=== PATIENT | female | born 1995 | race Caucasian/White ===

== ENCOUNTER → 2024-05-15 06:58 | Outpatient (REF) | payer OTHER, SELFPAY | LOC: PNTC 06:58 | PROVIDERS: ATTENDING PHYSICIAN Obstetrics & Gynecology | DX: Z36.0 Encounter for antenatal screening for chromosomal anomalies (principal); O99.210 Obesity complicating pregnancy, unspecified trimester | CPT/HCPCS: 76816 ==

== ENCOUNTER → 2024-06-12 14:40 | Outpatient (REF) | payer OTHER, SELFPAY | LOC: PNTC 14:40 | PROVIDERS: ATTENDING PHYSICIAN Obstetrics & Gynecology | DX: O99.210 Obesity complicating pregnancy, unspecified trimester (principal) | CPT/HCPCS: 76816 ==

== ENCOUNTER → 2024-06-26 14:44 | Outpatient (REF) | payer OTHER, SELFPAY | LOC: PNTC 14:44 | PROVIDERS: ATTENDING PHYSICIAN Obstetrics & Gynecology | DX: Z36.0 Encounter for antenatal screening for chromosomal anomalies (principal); O99.210 Obesity complicating pregnancy, unspecified trimester | CPT/HCPCS: 59025; 76815 ==

== ENCOUNTER → 2024-07-03 16:28 | Outpatient (REF) | payer OTHER, SELFPAY | LOC: PNTC 16:28 | PROVIDERS: ATTENDING PHYSICIAN Obstetrics & Gynecology | DX: O35.5XX0 Maternal care for (suspected) damage to fetus by drugs, not applicable or unspecified (principal) | CPT/HCPCS: 59025; 76815 ==

== ENCOUNTER → 2024-07-11 13:53 | Outpatient (REF) | payer OTHER, SELFPAY | LOC: PNTC 13:53 | PROVIDERS: ATTENDING PHYSICIAN Obstetrics & Gynecology | DX: O99.210 Obesity complicating pregnancy, unspecified trimester (principal); O99.320 Drug use complicating pregnancy, unspecified trimester | CPT/HCPCS: 59025; 76816 ==

== ENCOUNTER → 2024-07-18 14:19 | Outpatient (REF) | payer OTHER, SELFPAY | LOC: PNTC 14:19 | PROVIDERS: ATTENDING PHYSICIAN Obstetrics & Gynecology | DX: Z36.0 Encounter for antenatal screening for chromosomal anomalies (principal); O99.210 Obesity complicating pregnancy, unspecified trimester | CPT/HCPCS: 59025; 76818 ==

== ENCOUNTER → 2024-07-25 14:23 | Outpatient (REF) | payer OTHER, SELFPAY | LOC: PNTC 14:23 | PROVIDERS: ATTENDING PHYSICIAN Obstetrics & Gynecology | DX: O99.210 Obesity complicating pregnancy, unspecified trimester (principal) | CPT/HCPCS: 59025; 76815 ==

== ENCOUNTER → 2024-08-01 15:20 | Outpatient (REF) | payer OTHER, SELFPAY | LOC: PNTC 15:20 | PROVIDERS: ATTENDING PHYSICIAN Obstetrics & Gynecology | DX: Z36.0 Encounter for antenatal screening for chromosomal anomalies (principal); O99.210 Obesity complicating pregnancy, unspecified trimester | CPT/HCPCS: 59025; 76805; 76818 ==

== ENCOUNTER 2024-08-01 17:00 | Observation (INO) | payer OTHER, SELFPAY ==
[2024-08-01 17:12] VITALS: BP 111/62; BMI 51.3
== END 2024-08-01 18:08 | disposition home or self-care (01) ==
LOC: LDRP 17:00
PROVIDERS: ADMITTING PHYSICIAN Obstetrics & Gynecology
DX: O99.213 Obesity complicating pregnancy, third trimester (principal); Z3A.39 39 weeks gestation of pregnancy; O99.283 Endocrine, nutritional and metabolic diseases complicating pregnancy, third trimester; E28.2 Polycystic ovarian syndrome
CPT/HCPCS: 59025; 36415; 86850; 86900; 86901; G0378

== ENCOUNTER 2024-08-02 00:33 | Inpatient (IN) | payer OTHER, SELFPAY ==
[2024-08-02 00:48] VITALS: BMI 51.3
[2024-08-02 01:38] VITALS: BP 123/69
[2024-08-02] MEDS: LR 1000 IV ×3 (01:40→19:43)
[2024-08-02 01:53] LABS: Hematocrit 32.7 % (37.0-47.0); Hemoglobin 11.5 g/dL (12.0-16.0); Mean Corp Hgb Conc. 35.2 g/dL (33.0-37.0); Mean Corpuscular Hgb 28.1 pg (27.0-31.0); Mean Platelet Volume 10.5 fL (7.4-10.4); Platelet Count 300 10^3/uL (130-400); Red Blood Cell Count 4.09 10^6/uL (4.20-5.40); Red Cell Dist. Width 13.7 % (11.5-14.5)
[2024-08-02] MEDS: ZOFRAN 4 MG IV ×2 (04:22→22:13)
[2024-08-02] MEDS: PITOCIN 30 UNITS/NSS 500 ML IV (13:35)
[2024-08-02] MEDS: FENTANYL/BUPIVACAINE 100 EPIDURAL (16:34)
[2024-08-02] MEDS: SUBLIMAZE 100 MCG EPIDURAL (16:34)
[2024-08-03] MEDS: FENTANYL/BUPIVACAINE 100 EPIDURAL (00:23)
[2024-08-03] MEDS: LR 1000 IV (03:36)
[2024-08-03] MEDS: PITOCIN 30 UNITS/NSS 500 ML IV (05:56)
[2024-08-03] MEDS: PRENATAL PLUS 1 TABLET PO (08:57)
[2024-08-03] MEDS: SENOKOT-S 1 TABLET PO (08:57)
[2024-08-03] MEDS: TYLENOL 650 MG PO ×3 (08:57→22:09)
[2024-08-03] MEDS: MOTRIN 600 MG PO ×3 (08:58→22:09)
[2024-08-04] MEDS: MOTRIN 600 MG PO ×3 (04:27→23:37)
[2024-08-04] MEDS: TYLENOL 650 MG PO ×2 (04:27→23:37)
[2024-08-04 05:00] LABS: Hematocrit 27.1 % (37.0-47.0); Hemoglobin 9.1 g/dL (12.0-16.0)
[2024-08-04] MEDS: SENOKOT-S 1 TABLET PO (12:30)
[2024-08-04] MEDS: PRENATAL PLUS 1 TABLET PO (12:31)
[2024-08-07 11:25] LABS: Syphilis/T. pallidum Ab Reflex Negative (Negative)
== END 2024-08-05 12:06 | disposition home or self-care (01) | DRG 807 ==
LOC: LDRP 00:33
PROVIDERS: Obstetrics & Gynecology; ADMITTING PHYSICIAN Obstetrics & Gynecology
PROC: 10907ZC Drainage of Amniotic Fluid, Therapeutic from Products of Conception, Via Natural or Artificial Opening (ICD-10-PCS; 2024-08-02)
PROC: 10D07Z6 Extraction of Products of Conception, Vacuum, Via Natural or Artificial Opening (ICD-10-PCS; 2024-08-03)
PROC: 0HQ9XZZ Repair Perineum Skin, External Approach (ICD-10-PCS; 2024-08-03)
DX: O34.219 Maternal care for unspecified type scar from previous cesarean delivery (principal); Z37.0 Single live birth; Z3A.39 39 weeks gestation of pregnancy; O70.0 First degree perineal laceration during delivery; O99.284 Endocrine, nutritional and metabolic diseases complicating childbirth; E28.2 Polycystic ovarian syndrome; O99.214 Obesity complicating childbirth; Z28.310 Unvaccinated for COVID-19; Z82.0 Family history of epilepsy and other diseases of the nervous system; Z80.3 Family history of malignant neoplasm of breast; Z82.49 Family history of ischemic heart disease and other diseases of the circulatory system
CPT/HCPCS: 88307; 54150; 85014; 85018; 85027; 86780; 86850; 86900; 86901; 87491; 87591

== ENCOUNTER → 2025-05-28 14:20 | Outpatient (REF) | payer OTHER, SELFPAY | LOC: PNTC 14:20 | PROVIDERS: ATTENDING PHYSICIAN Obstetrics & Gynecology | DX: O99.210 Obesity complicating pregnancy, unspecified trimester (principal); O34.219 Maternal care for unspecified type scar from previous cesarean delivery | CPT/HCPCS: 36415; 76805 ==

== ENCOUNTER → 2025-06-24 15:54 | Outpatient (REF) | payer OTHER, SELFPAY | LOC: PNTC 15:54 | PROVIDERS: ATTENDING PHYSICIAN Obstetrics & Gynecology | DX: O34.219 Maternal care for unspecified type scar from previous cesarean delivery (principal); O99.212 Obesity complicating pregnancy, second trimester; Z36.86 Encounter for antenatal screening for cervical length; E66.01 Morbid (severe) obesity due to excess calories | CPT/HCPCS: 76811 ==

== ENCOUNTER → 2025-07-29 09:26 | Outpatient (REF) | payer OTHER, SELFPAY | LOC: PNTC 09:26 | PROVIDERS: ATTENDING PHYSICIAN Student in an Organized Health Care Education/Training Program | DX: O99.210 Obesity complicating pregnancy, unspecified trimester (principal) | CPT/HCPCS: 76816 ==

== ENCOUNTER → 2025-08-27 07:33 | Outpatient (REF) | payer OTHER, SELFPAY | LOC: PNTC 07:33 | PROVIDERS: ATTENDING PHYSICIAN Obstetrics & Gynecology | DX: O99.210 Obesity complicating pregnancy, unspecified trimester (principal) | CPT/HCPCS: 76816 ==

== ENCOUNTER → 2025-09-24 07:33 | Outpatient (REF) | payer OTHER, SELFPAY | LOC: PNTC 07:33 | PROVIDERS: ATTENDING PHYSICIAN Obstetrics & Gynecology | DX: O09.523 Supervision of elderly multigravida, third trimester (principal) | CPT/HCPCS: 59025; 76816 ==

== ENCOUNTER → 2025-10-01 07:40 | Outpatient (REF) | payer OTHER, SELFPAY | LOC: PNTC 07:40 | PROVIDERS: ATTENDING PHYSICIAN Obstetrics & Gynecology | DX: O99.213 Obesity complicating pregnancy, third trimester (principal) | CPT/HCPCS: 59025; 76815 ==

== ENCOUNTER → 2025-10-08 07:31 | Outpatient (REF) | payer OTHER, SELFPAY | LOC: PNTC 07:31 | PROVIDERS: ATTENDING PHYSICIAN Obstetrics & Gynecology | DX: O99.213 Obesity complicating pregnancy, third trimester (principal); E66.01 Morbid (severe) obesity due to excess calories | CPT/HCPCS: 59025; 76815 ==

== ENCOUNTER → 2025-10-15 07:38 | Outpatient (REF) | payer OTHER, SELFPAY | LOC: PNTC 07:38 | PROVIDERS: ATTENDING PHYSICIAN Obstetrics & Gynecology | DX: O99.213 Obesity complicating pregnancy, third trimester (principal); E66.01 Morbid (severe) obesity due to excess calories | CPT/HCPCS: 59025; 76815 ==

== ENCOUNTER → 2025-10-22 07:23 | Outpatient (REF) | payer OTHER, SELFPAY | LOC: PNTC 07:23 | PROVIDERS: ATTENDING PHYSICIAN Student in an Organized Health Care Education/Training Program | DX: O99.213 Obesity complicating pregnancy, third trimester (principal); E66.01 Morbid (severe) obesity due to excess calories; O36.63X0 Maternal care for excessive fetal growth, third trimester, not applicable or unspecified | CPT/HCPCS: 59025; 76816 ==

== ENCOUNTER → 2025-10-29 07:37 | Outpatient (REF) | payer OTHER, SELFPAY | LOC: PNTC 07:37 | PROVIDERS: ATTENDING PHYSICIAN Obstetrics & Gynecology | DX: O99.213 Obesity complicating pregnancy, third trimester (principal); E66.01 Morbid (severe) obesity due to excess calories; O36.63X0 Maternal care for excessive fetal growth, third trimester, not applicable or unspecified | CPT/HCPCS: 59025; 76815 ==

== ENCOUNTER 2025-11-01 05:50 | Inpatient (IN) | payer OTHER, SELFPAY ==
[2025-11-01 06:16] VITALS: BP 134/87; BMI 52.2
[2025-11-01] MEDS: LR 1000 IV ×2 (06:32→07:19)
[2025-11-01] MEDS: BICITRA 30 ML PO (07:13)
[2025-11-01] MEDS: ANCEF 15 MG IV (07:14)
[2025-11-01] MEDS: TYLENOL 975 MG PO (07:14)
[2025-11-01 07:23] LABS: Hematocrit 33.3 % (37.0-47.0); Hemoglobin 11.2 g/dL (12.0-16.0); Mean Corp Hgb Conc. 33.6 g/dL (33.0-37.0); Mean Corpuscular Volume 79.9 fL (81.0-99.0); Platelet Count 286 10^3/uL (130-400); Red Cell Dist. Width 13.7 % (11.5-14.5)
[2025-11-01] MEDS: REGLAN 10 MG IV (10:25)
[2025-11-01] MEDS: TORADOL 15 MG IV ×2 (15:13→21:07)
[2025-11-01] MEDS: FLUSH (NSS) 1 FLUSH IV (15:14)
[2025-11-01] MEDS: PITOCIN 30 UNITS/NSS 500 ML IV (15:18)
[2025-11-01] MEDS: COLACE 100 MG PO (19:27)
[2025-11-01] MEDS: PRENATAL PLUS 1 TABLET PO (21:07)
[2025-11-02] MEDS: TORADOL 15 MG IV (03:05)
[2025-11-02 05:07] LABS: Hematocrit 26.0 % (37.0-47.0); Hemoglobin 8.7 g/dL (12.0-16.0); Mean Corp Hgb Conc. 33.5 g/dL (33.0-37.0); Mean Corpuscular Volume 80.7 fL (81.0-99.0); Platelet Count 270 10^3/uL (130-400); Red Cell Dist. Width 13.6 % (11.5-14.5)
[2025-11-02] MEDS: COLACE 100 MG PO ×2 (08:13→20:30)
[2025-11-02] MEDS: FEOSOL 325 MG PO (08:13)
[2025-11-02] MEDS: MOTRIN 600 MG PO ×2 (11:49→18:00)
[2025-11-02] MEDS: TYLENOL 650 MG PO ×3 (11:53→20:30)
[2025-11-02] MEDS: PRENATAL PLUS 1 TABLET PO (20:45)
[2025-11-03] MEDS: MOTRIN 600 MG PO ×3 (00:01→12:02)
[2025-11-03] MEDS: TYLENOL 650 MG PO ×2 (06:08→10:20)
[2025-11-03] MEDS: COLACE 100 MG PO (08:15)
[2025-11-03] MEDS: FEOSOL 325 MG PO (08:15)
== END 2025-11-03 14:28 | disposition home or self-care (01) | DRG 788 ==
LOC: LDRP 05:50
PROVIDERS: ADMITTING PHYSICIAN Obstetrics & Gynecology
PROC: 10D00Z1 Extraction of Products of Conception, Low, Open Approach (ICD-10-PCS; 2025-11-01)
DX: O34.211 Maternal care for low transverse scar from previous cesarean delivery (principal); Z3A.39 39 weeks gestation of pregnancy; Z37.0 Single live birth; O99.284 Endocrine, nutritional and metabolic diseases complicating childbirth; E28.2 Polycystic ovarian syndrome; O43.123 Velamentous insertion of umbilical cord, third trimester; O90.81 Anemia of the puerperium; D64.9 Anemia, unspecified; Z80.8 Family history of malignant neoplasm of other organs or systems; Z80.3 Family history of malignant neoplasm of breast; Z82.0 Family history of epilepsy and other diseases of the nervous system; Z82.49 Family history of ischemic heart disease and other diseases of the circulatory system
CPT/HCPCS: 36415; 85027; 86850; 86900; 86901